=== PATIENT | male | born 1985 | race Caucasian/White ===

== ENCOUNTER 2022-03-01 23:13 | Emergency (ER) | payer OTHER ==
[~2022-03-01] VITALS: Ht 180.3 cm; Wt 104.3 kg
[2022-03-01 23:17] VITALS: BP 132/90
--- NOTE | 2022-03-01 23:17 | NUR ---
BIBA TAKEN TO BED #5
--- NOTE | 2022-03-01 23:27 | NUR ---
DR. SANCHES AT BEDSIDE
--- NOTE | 2022-03-01 23:40 | NUR ---
36/M BIBA C/O DIZZINESS X1HR AGO. PATIENT STATED THAT HE WAS IN BED WATCHING TV AND STARTED FEELING DIZZY. PATIRUTN STATED THAT HE WAS HERE ON 02/28 FOR THE SAME REASON. PER BRITTNEY HE HAD NGUYEN AT NOON AND TOOK ASPIRIN TO RELIEF THE PAIN. STATED HE ONLY ATE A PB&J SANDWICH TODAY. PATIENT DENIES PAIN/VISION CHANGES/CP/SOB/N/V/D/C AT THIS TIME. PLACED IN BED WITH GOWN. BED IN LOWEST POSITION AND LOCKED. PMHX HERNIA, SLEEP APNEA, PRE DIABETIC MEDS DENIES NKA
--- NOTE | 2022-03-01 23:47 | NUR ---
IV ESTABLISHED 22G LEFT HAND , BLOOD COLLECTED AND HANDED TO LAB
[2022-03-01 23:51] LABS: BASOPHILS % (AUTO) 0.5 % (0.0-2.0); EOSINOPHILS # (AUTO) 0.2 K/uL (0-0.4); EOSINOPHILS % (AUTO) 2.1 % (0.0-4.0); HEMATOCRIT 45.3 % (36-52); HEMOGLOBIN 15.4 g/dL (12.0-18.0); LYMPHOCYTES # (AUTO) 1.5 K/uL (2.0-11.5); LYMPHOCYTES % (AUTO) 19.5 % (20.5-51.1); MEAN CORPUSCULAR HEMOGLOBIN 30 pg (27-31); MEAN CORPUSCULAR HGB CONC 34 g/dL (33-37); MEAN CORPUSCULAR VOLUME 86.5 fL (80-94); MONOCYTES # (AUTO) 0.9 K/uL (0.8-1.0); MONOCYTES % (AUTO) 11.4 % (1.7-9.3); NEUTROPHILS % (AUTO) 66.5 % (42.2-75.2); PLATELET COUNT (AUTO) 317 K/uL (140-450); RED BLOOD CELL COUNT(AUTO) 5.24 MIL/uL (4.20-6.10); RED CELL DISTRIBUTION WIDTH 14.2 % (11.6-13.7); WHITE BLOOD COUNT (AUTO) 7.5 K/uL (4.8-10.8)
--- NOTE | 2022-03-02 00:01 | NUR ---
URINE COLLECTED AND WALKED TO LAB
[2022-03-02 00:18] LABS: BARBITURATE, URINE NEGATIVE ng/ml (NEG <=200); BENZODIAZEPINE, URINE NEGATIVE ng/mL (NEG <=200); CANNABINOID, URINE NEGATIVE ng/mL (NEG <=50); COCAINE, URINE NEGATIVE ng/mL (NEG <=300); OPIATE, URINE NEGATIVE ng/mL (NEG <=2000); PHENCYCLIDINE SCREEN,URINE NEGATIVE ng/mL (NEG <=25)
[2022-03-02 00:19] LABS: ANION GAP 10.7 (8-16); CARBON DIOXIDE 25.1 mmol/L (21-32); CREATININE 0.8 mg/dL (0.6-1.3); POTASSIUM 3.8 mmol/L (3.5-5.1)
--- NOTE | 2022-03-02 02:00 | NUR ---
MD SANCHES AT BEDSIDE
--- NOTE | 2022-03-02 02:19 | NUR ---
IV removed, catheter intact and site benign. Applied folded 4x4 gauze and tape to stop bleeding.
[2022-03-02 02:20] VITALS: BP 127/85
--- NOTE | 2022-03-02 02:20 | NUR ---
Patient discharged with v/s stable. Written and verbal after care instructions given and explained. Patient verbalized understanding. Ambulatory with steady gait. All questions addressed prior to discharge. Advised to follow up with PMD.
--- NOTE | 2022-03-02 02:26 | NUR ---
The patient's care was reviewed and supervised by Amy Nguyễn RN.
[2022-03-03] MEDS ORDERED: ONDA-188 PO (02:21)
[2022-03-03] MEDS ORDERED: HYDR25CA1 PO (20:50)
== END 2022-03-02 02:20 | disposition home or self-care (01) ==
LOC: MED 23:13
DX: R42 Dizziness and giddiness (principal); Z79.899 Other long term (current) drug therapy
CPT/HCPCS: 36415; 80048; 80305; 85025; 93005; 99284

== ENCOUNTER 2022-03-02 21:57 | Emergency (ER) | payer OTHER ==
[~2022-03-02] VITALS: Ht 180.3 cm; Wt 116.3 kg
[2022-03-02 22:01] VITALS: BP 146/95
--- NOTE | 2022-03-02 22:07 | NUR ---
SWABS COLLECTED AND TAKEN TO LAB. PT TO [facility].
[2022-03-02 22:55] LABS: BASOPHILS % (AUTO) 0.3 % (0.0-2.0); EOSINOPHILS # (AUTO) 0.1 K/uL (0-0.4); EOSINOPHILS % (AUTO) 1.3 % (0.0-4.0); HEMATOCRIT 46.1 % (36-52); HEMOGLOBIN 15.3 g/dL (12.0-18.0); LYMPHOCYTES # (AUTO) 1.4 K/uL (2.0-11.5); LYMPHOCYTES % (AUTO) 19.2 % (20.5-51.1); MEAN CORPUSCULAR HEMOGLOBIN 29 pg (27-31); MEAN CORPUSCULAR HGB CONC 33 g/dL (33-37); MEAN CORPUSCULAR VOLUME 87.8 fL (80-94); MONOCYTES # (AUTO) 0.6 K/uL (0.8-1.0); MONOCYTES % (AUTO) 8.4 % (1.7-9.3); NEUTROPHILS # (AUTO) 5.1 K/uL (1.8-7.7); NEUTROPHILS % (AUTO) 70.8 % (42.2-75.2); PLATELET COUNT (AUTO) 308 K/uL (140-450); RED BLOOD CELL COUNT(AUTO) 5.25 MIL/uL (4.20-6.10); RED CELL DISTRIBUTION WIDTH 14.5 % (11.6-13.7); WHITE BLOOD COUNT (AUTO) 7.1 K/uL (4.8-10.8)
[2022-03-02 23:10] LABS: ALBUMIN 3.9 g/dL (3.4-5.0); ANION GAP 12.9 (8-16); CARBON DIOXIDE 26.9 mmol/L (21-32); CREATININE 0.9 mg/dL (0.6-1.3); POTASSIUM 3.8 mmol/L (3.5-5.1); TOTAL BILIRUBIN 0.4 mg/dL (0.0-1.0)
--- NOTE | 2022-03-03 01:28 | NUR ---
PT TO BED 10.
--- NOTE | 2022-03-03 01:55 | NUR ---
DR SANCHES AT BEDSIDE FOR EXAM
[2022-03-03] MEDS ORDERED: ONDANSETRON 4 MG ODT PO ONE (02:00)
[2022-03-03] MEDS ORDERED: ONDA-188 PO (02:21)
[2022-03-03 02:50] VITALS: BP 146/95
[2022-03-03] MEDS ORDERED: HYDR25CA1 PO (20:50)
== END 2022-03-03 02:50 | disposition home or self-care (01) ==
LOC: MED 21:57
DX: R11.0 Nausea (principal); Z20.822 Contact with and (suspected) exposure to COVID-19
CPT/HCPCS: 36415; 70450; 80053; 83690; 85025; 87426; 87804; 99284; Q0162

== ENCOUNTER 2022-03-03 18:56 | Emergency (ER) | payer OTHER ==
[~2022-03-03] VITALS: Ht 180.3 cm; Wt 114.5 kg
[~2022-03-03 18:56] MED LIST: ONDA-188 PO
[2022-03-03 19:11] VITALS: BP 126/75
[2022-03-03] MEDS ORDERED: LORazepam 1 MG TAB PO ONE (19:55)
[2022-03-03] MEDS ORDERED: HYDR25CA1 PO (20:50)
[2022-03-03 21:21] VITALS: BP 120/72
--- NOTE | 2022-03-03 21:22 | NUR ---
Patient discharged with v/s stable. Written and verbal after care instructions given and explained. Patient alert, oriented and verbalized understanding of instructions. Ambulatory with steady gait. All questions addressed prior to discharge. ID band removed. Patient advised to follow up with PMD. Rx of VISTARIL given. Patient educated on indication of medication including possible reaction and side effects. Opportunity to ask questions provided and answered. A/OX4, VSS, UNLABORED BREATHING.
== END 2022-03-03 21:22 | disposition home or self-care (01) ==
LOC: MED 18:56
DX: F41.9 Anxiety disorder, unspecified (principal); R03.0 Elevated blood-pressure reading, without diagnosis of hypertension; G47.30 Sleep apnea, unspecified; Z79.899 Other long term (current) drug therapy
CPT/HCPCS: 99283